=== PATIENT | female | born 1960 | race Caucasian/White ===

== ENCOUNTER 2019-10-17 16:39 | Emergency (ER) | payer OTHER, SELFPAY ==
--- NOTE | 2019-10-17 16:51 | ED.GENADULT ---
HPI - General Adult General Chief complaint: Upper Respiratory Infection Stated complaint: Sore Throat,Body Aches Time Seen by Provider: 10/17/19 17:01 Source: patient Mode of arrival: ambulatory Limitations: no limitations History of Present Illness HPI narrative: 58-year-old female patient presents to the the medical center with complaints of cold symptoms that started abruptly last night. Patient denies getting a flu shot this year. Patient states she thinks she has been running fevers but has had overall body aches pains. Patient states she has had a sore throat and some right ear pain. Denies any chest pain or shortness of breath. Patient denies seeing anything for her symptoms states she is just been trying to stay hydrated and sleeping. Related Data Home Medications Medication Instructions Recorded Confirmed Protonix 10/17/19 levothyroxine 112 mcg PO DAILY 10/17/19 10/17/19 paroxetine HCl [Paxil] 30 mg PO QAM 10/17/19 10/17/19 Allergies Allergy/AdvReac Type Severity Reaction Status Date / Time No Known Allergies Allergy Unverified 10/17/19 17:02 Review of Systems Review of Systems: Narrative: CONSTITUTIONAL: Positive subjective fever, chills, body aches and sweats. EYES: Denies visual changes, redness, or discharge. ENT: Denies rhinorrhea, congestion, positive sore throat, denies otalgia. CARDIOVASCULAR: Denies chest pain, palpitations, or edema. RESPIRATORY: Denies cough or dyspnea. GASTROINTESTINAL: Denies abdominal pain, nausea, vomiting, or diarrhea. GENITOURINARY: Denies dysuria or hematuria. SKIN: Denies rash or itching. MUSCULOSKELETAL: Denies back pain, joint pain, or myalgia. NEUROLOGIC: Positive headache, denies numbness, or weakness. PSYCHIATRIC: Denies anxiety or depression. PMFSH Social History Social History Gender identity (if verbalized by the patient): Female Comments At the time of my signature I agree with nursing past medical history, surgical, social, and family history. There is no relevant family history pertinent to the presenting complaint. Exam Narrative: Exam Narrative: GENERAL: Well-appearing, well-nourished, and in no acute distress. HEAD: Normocephalic, atraumatic. No tenderness noted to frontal or maxillary sinuses on palpation EYES: PERRLA and EOMI. ENT: Nares clear, no rhinorrhea or epistaxis. Mucous membranes moist. Posterior pharynx with 2+ tonsil swelling slight erythema no exudates or lesions present. Bilateral TMs are clear no erythema or foreign bodies in the canal. NECK: Supple. No lymphadenopathy CHEST: Clear to auscultation. No respiratory distress. HEART: Regular rate and rhythm. No murmur heard. Normal peripheral pulses. ABDOMEN: Soft, nontender, nondistended, normal active bowel sounds. EXTREMITIES: Normal range of motion. No edema. SKIN: Warm, dry, no rash. NEURO: No focal deficits. Alert and oriented x3. Course Reevaluation(s) Reevaluation #1: Notify patient that her influenza test today is negative however her strep is positive. Discussed with her we will discharge her home with oral antibiotics for the strep infection. Discussed with patient she can take Tylenol and ibuprofen as needed for pains, fevers and body aches. Discussed with patient I did go ahead and write her off work for tomorrow however she has worsening symptoms she will need to go to the ER otherwise follow-up with her primary doctor next 5 to 7 days as needed. Patient verbalized understanding denies any other questions or concerns. Date: 10/17/19 Time: 17:11 Vital Signs Vital signs: Vital Signs Temperature 36.8 C 10/17/19 17:02 Pulse Rate 97 10/17/19 17:02 Respiratory Rate 18 10/17/19 17:02 Blood Pressure 133/78 10/17/19 17:02 Pulse Oximetry 98 10/17/19 17:02 Temperature 36.8 C 10/17/19 17:02 Pulse Rate 97 10/17/19 17:02 Respiratory Rate 18 10/17/19 17:02 Blood Pressure 133/78 10/17/19 17:02 Pulse
[2019-10-17 17:02] VITALS: BP 133/78; PULSE 97; RESP 18; TEMP 36.8; O2SAT 98
== END 2019-10-17 17:15 | disposition home or self-care (01) ==
PROVIDERS: Emergency Provider Nurse Practitioner Family; PCP Family Medicine Adolescent Medicine
DX: J02.0 Streptococcal pharyngitis (principal)
CPT/HCPCS: 87804; 87880; 99213; G0463

== ENCOUNTER → 2021-07-03 05:28 | Outpatient (CLI) | payer OTHER, SELFPAY ==
[2021-07-03 16:43] LABS: SARS-CoV-2 RNA PCR Negative
== END ==
PROVIDERS: PCP Family Medicine Adolescent Medicine; Visit Provider Family Medicine Adolescent Medicine
DX: R50.9 Fever, unspecified (principal); R05.9 Cough, unspecified; Z20.822 Contact with and (suspected) exposure to COVID-19
CPT/HCPCS: C9803; U0003; U0005

== ENCOUNTER → 2025-02-20 15:49 | Outpatient (CLI) | payer OTHER, SELFPAY ==
--- NOTE | ~2025-02-20 | XR_ITS ---
Clinical Indication: Chronic cough PA and lateral views of the chest: Comparison: None Findings: The lungs are clear, without evidence of focal consolidation or pleural effusion. Cardiome diastinal silhouette is within normal limits. Bones and soft tissues are unremarkable. Impression: Normal chest. Reviewed, dictated and finalized at location . Impression: Normal chest.
== END ==
LOC: EXPCRAD 15:53
PROVIDERS: PCP Nurse Practitioner Family; Visit Provider Nurse Practitioner Family
DX: R05.3 Chronic cough (principal)
CPT/HCPCS: 71046

== ENCOUNTER 2025-04-29 19:54 | Emergency (ER) | payer OTHER, SELFPAY ==
--- NOTE | ~2025-04-29 | XR_ITS ---
EXAMINATION: XR chest 2V 04/29/2025 20:37 INDICATION: Chest pain PROCEDURE: 2 view chest COMPARISON: 02/20/2025 FINDINGS: The lungs are clear. The cardiomediastinal silhouette is within normal limits. There are no pleural effusions. There is no pneumothorax suspected. IMPRESSION: 1: NO ACUTE CARDIOPULMONARY DISEASE. Reviewed, dictated and finalized at location A.
--- NOTE | 2025-04-29 19:54 | ECG_ITS ---
Test Date: 2025-04-29 20:01:49 Measurements Intervals Robards Rate: 75 P: 33 VA: 162 QRS: -14 QRSD: 89 T: 24 QT: 368 QTc: 412 Interpretive Statements SINUS RHYTHM POSSIBLE LEFT ATRIAL ENLARGEMENT LOW QRS VOLTAGE IN PRECORDIAL LEADS POSSIBLE ANTERIOR MYOCARDIAL INFARCTION , PROBABLY OLD ABNORMAL ECG No previous ECG available for comparison Electronically Signed On 04-30-2025 06:15:36 CDT by Josh Juarez D.O.
[2025-04-29 19:55] VITALS: BP 152/88; PULSE 77; RESP 17; TEMP 36.1; O2SAT 99
--- OUTSIDE RECORDS SUMMARY | 2025-04-29 19:56 | XMS_ITS | Encounter Summary ---
Author Organization [facility] Health Address [address] [place] [address] Care Team Providers Care Printed Circuit Board Layout Designer Name Role Phone Lonnie Redman MD Primary Care Provider + Reason for Visit * Reason Onset Date Comments MEDICATION REFILL 02/06/2021 Encounter Details Date Type Department Care Team (Late st Contact Info) Description 02/06/2021 Refill [facility] [address] [facility] [address] [place] [address] Vee Clarke MD [address] [facility] [address] [place] [id number] MEDICATION REFILL Social History Tobacco Use Types Packs/Day Years Used Date Smoking Tobacco: Former Smokeless Tobacco: Never Comments:Quit 19 years ago Alcohol Use Standard Drinks/Week Comments Yes 0 (1 standard drink = 0.6 oz pur e alcohol) rare Comments No Sex and Gender Information Value Date Recorded Sex Assigned at Female 02/23/2021 7:50 AM CDT Legal Sex Female 5:29 AM INFORMATION CONSULTANT Gender Identity Female 02/23/2021 7:50 AM CDT Sexual Orientation Straight 04/06/2021 5: 29 PM CDT COVID-19 Exposure Response Date Recorded In the last month, have you been in contact with someone who was confirmed or suspected to have Coronavirus / COVID-19? No / Unsure 01/12/2021 2:33 PM CDT documented as of this encounter Miscellaneous Notes * Telephone Encounter - Jennifer Mccarthy RN - 02/06/2021 3:20 PM CDT Please see previous notes. Patient needs a FU visit with . Suggest she contact our office. documented in this encounter Plan of Treatment Upcoming Encounters Date Type Department Care Team (Late st Contact Info) Description 08/13/2025 8:30 AM INFORMATION CONSULTANT Office Visit [facility] - HOSPITAL UNIT COORDINATOR [address], [facility] [address] [place] [address] Vee Clarke MD [address] [facility] [address] [place] [address] documented as of this encounter Visit Diagnoses Diagnosis History of candidiasis Personal history of other infectious and parasitic disease documented in this encounter Care Teams Printed Circuit Board Layout Designer Relationship Specialty Start Date End Date Lonnie eRdman MD [address] [place] [id number] PCP - General 12/21/17 documented as of this encounter
--- OUTSIDE RECORDS SUMMARY | 2025-04-29 19:56 | XMS_ITS | Clinical Summary ---
Author Organization [facility] Address [address] [place] [address] Care Team Providers Care Livestock Farmers Name Role Phone Lonnie Redman MD Primary Care Prov ider Allergies No known active allergies Medications fluocinonide (LIDEX) 0.05 % ointment APPLY TO EXTERNAL VULVAR TISSUE TWICE DAILY. 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 Surgical History Surgery Date Site/Laterality Comments TONSILLECTOMY 09/12/1977 - 09/11/1978 PELVIC LAPAROSCOPY 09/12/1989 - 09/11/1990 endometriosis and benign ovarian cyst SECTION 09/12/1990 - 09/11/1991 GASTRIC BYPASS 09/12/1996 - 09/11/1997 CHOLECYSTECTOMY 09/12/1997 - 09/11/1998 INCISIONAL HERNIA REPAIR 09/12/1997 - 09/11/1998 ENDOMETRIAL BIOPSY 09/12/2017 - 09/11/2018 benign EXCISION / BIOPSY BREAST / NIPPLE / DUCT 09/12/2000 - 09/11/2001 Right benign Medical History Medical History Date Comments Hypothyroidism Depression Family History Medical History Relation Name Comments Ovarian cancer Cousin 1 Vicky Salena's daught er [place] sarcoma Cousin 2 paternal Massiel's son Testicular cancer Cousin 3 paternal Paolo's s on Esophageal cancer Cousin 4 maternal s/p lung t ransplant Colon cancer Father's Brother Jarrod Ovarian cancer Father's Sister February v uterine, COD Breast cancer Maternal Grandmother Breast cancer Mother COD Breast cancer Sister Arlin ER+, 3 primari es, germline testing reportedly neg Relation Name Status Comments Cousin 1 Vicky Cousin 2 paternal Alive Cousin 3 paternal Alive Cousin 4 maternal Father Father's Brother Jarrod Father's Sister February Maternal Grandfather Maternal Grandmother Mother Paternal Grandfather Paternal Grandmother Sister Arlin Alive Social History Tobacco Use Types Packs/Day Years Used Date Smoking Tobacco: Former Personal Safety Answer Date Recorded Getting School Help Needed Not on file 11/25 Comments No Sex and Gender Information Value Date Recorded Sex Assigned at Not on file Legal Sex Female 11:42 PM 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 Gender Identity Female 04/13/2021 2:57 PM CDT Sexual Orientation Straight 04/13/2021 2: 57 PM CDT Obstetrics History Para Term AB IAB SAB Ectopic Multiple Livin g Live Births 2 2 2 Date Outcome GA Total Labor Labor/2nd/3rd Weight Sex Type Anes PTL Cheryle A1 A5 Name Clin Term Term Plan of Treatment Not on file [facility] HMO [facility] HMO Care Teams Livestock Farmers Relationship Specialty Start Date End Date Lonnie Redman MD [address] [place] [address] PCP - General Family Medicine 06/20/18
--- OUTSIDE RECORDS SUMMARY | 2025-04-29 19:56 | XMS_ITS | Clinical Summary ---
Author Organization [facility] Address [address] [place] [address] Care Team Providers Care Spin Tank Tender Name Role Phone Lonnie Redman MD Primary Care Provider + Source Comments [facility],non-owned Affiliates and Associated Physician Practices is amultiple site organization consisting of ambulatory clinics and hospital sitesin [place], [place], [place] and [place]. This disclosure is being madepursuant to the Care Everywhere program and may not contain all information available regarding this patient. Last updated 18.[facility] Allergies No known active allergies Medications * Be aware that medications may not be up to date on this document. Alwaysverify current medications with the patient. PARoxetine (PAXIL) 30 MG tablet Take 1 (one) tablet by mouth once daily 2 8 Active Multiple Vitamins-Mineral s (MULTIVITAMIN ADULT PO) Take 1 tablet by mouth once daily Active levothyroxine (SYNTHROID) 112 MCG tablet Take 1 (one) tablet by mouth once daily 3 8 Active pantoprazole EC (PROTONIX) 40 MG tablet Take 1 (one) tablet by mouth once daily 0 Active nystatin (Mycostatin) 156082 UNIT/GM ointmentIndicati ons:Yeast infection involving the vagina and surrounding area Apply to external vulvar tissues twice daily. 30 g 1 4 Active tacrolimus (Protopic) 0.1 % ointmentIndicati ons:Lichen sclerosus et atrophicus of the vulva APPLY TO THE AFFECTED AREA TWICE A DAY 60 g 1 5 Active albuterol HFA (Proventil; Ventolin; Proair) 108 (90 Base) MCG/ACT inhaler Inhale 2 (two) puffs by mouth every 4 hours as needed for Wheezing 5 Active levothyroxine (Synthroid) 125 MCG tablet Take 1 (one) tablet by mouth once daily 5 Active fluconazole (Diflucan) 200 MG tabletIndication s:Yeast infection involving the vagina and surrounding area TAKE 1 TABLET BY MOUTH EVERY OTHER DAY FOR THREE DOSES 3 tablet 5 Active Active Problems Problem Noted Date Diagnosed Date 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 Hypothyroidism 05/13/2007 Resolved Problems Problem Noted Date Diagnosed Date Resolved Date Lichen sclerosus 12/21/2017 05/20/2022 Screening for condition 05/24/200907/13 Overview (06/12/2015): Mammogram 05-24-2008 Negative Category 1 Encounters Date Type Department Care Team Description 02/05/2025 8:30 AM CDT Office Visit [facility] - SPEECH ASSISTANT [address], [facility] [address] [place] [address] Vee Clarke MD Lichen sclerosus et atrophicus of the vulva (Primary Dx); history of candidiasis 02/05/2025 Travel from Last 3 Months Immunizations Immunization Administration Dates Next Due Zoster Hzv Vacc Recombinant Inj Im 11/03/2019 Family History Relation Name Status Comments Mother (Age 59) Breast Can cer dx age 56 Social History Tobacco Use Types Packs/Day Years Used Date Smoking Tobacco: Former Passive Smoke Exposure: Never Smokeless Tobacco: Never Tobacco Cessation:Counseling Given: Not Answered Comments:Quit 19 years ago Alcohol Use Standard Drinks/Week Comments Yes 0 (1 standard drink = 0.6 oz pur e alcohol) rare PHQ-2 Answer Date Recorded Patient Health Questionnaire-2 Score 0 02/05/2025 Comments No Sex and Gender Information Value Date Recorded Sex Assigned at Female 02/23/2021 7:50 AM CDT Legal Sex Female 5:29 AM TIN POURER Gender Identity Female 02/23/2021 7:50 AM CDT Sexual Orientation Straight 04/06/2021 5: 29 PM CDT Last Filed Vital Signs Vital Sign Reading Time Taken Comments Blood Pressure 148/88 02/05/2025 8:31 AM CDT Pulse - - Temperature 36 C (96.8 F) 07/31/2024 2:04 PM TIN POURER Respiratory Rate - - Oxygen Saturation - - Inhaled Oxygen Concentration - - Weight 92.4 kg (203 lb 9.6 oz) 02/05/2025 8:31 A M CDT Height 154.9 cm (5' 1) 02/05/2025 8:31 AM CDT Body Mass Index 38.47 02/05/2025 8:31 AM CDT Plan of Treatment Upcoming Encounters Date Type Department Care Team (Late st Contact Info) Description 08/13/2025 8:30 AM TIN POURER Office Visit [facility] - SPEECH ASSISTANT [address], [facility] [address] [place] [address] Vee Clarke MD [address] [place] [address] Health Maintenance Due Date Last Done Comments COLOGUARD (AGES 45-75) - COLON CA SCREENING 1960 COLON MONITORING 1960 COLONOSCOPY - COLON CA SCREENING 1960 CT COLONOGRAPHY - COLON CA SCREENING 1960 Colorectal Cancer Screening 1960 FIT - COLON CA SCREENING 1960 FLEX SIG - COLON CA SCREENING 1960 LIPID TESTING 1960 HIV SCREENING 1975 HEPATITIS C SCREENING 11/02/1978 DTAP/TDAP/TD VACCINES (1 - Tdap) 1979 PNEUMOCOCCAL VACCINE 50+ (1 of 1 - PCV) 2010 ZOSTER VACCINE (2 of 2) 12/29/2019 11/03/2019 COVID-19 VACCINE (3 - 2023- season) 2024 01/04/2021, 12/07/2020 SCREENING FOR DIABETES 07/31/2024 INFLUENZA VACCINE (#1) 2025 11/03/2019 PAP SMEAR 03/22/2026 03/22/2023, 03/22/2023 MAMMOGRAM 03/30/2026 03/30/2024, 03/12, 12/29/2021 (Done Outside Per Report), Additional history exists Respiratory Syncytial Virus (RSV) Vaccine Pt: or over 60 yrs (1 - 1-dose 75+ series) 2035 DEPRESSION SCREENING Completed 02/05/2025, 03/01/20 23 HEPATITIS B VACCINE Aged Out No longe r eligible based on patient's age to complete this topic HIB VACCINE Aged Out No longer eligi ble based on patient's age to complete this topic HPV VACCINE Aged Out No longer eligi ble based on patient's age to complete this topic MENINGOCOCCAL (Group B) VACCINE SHARED DECISION-MAKING Aged Out No longer eligible based on patient's age to complete this topic MENINGOCOCCAL GROUPS A/C/Y/W VACCINE Aged Out No longer eligible based on patient's age to complete this topic Procedures Procedure Name Priority Date/Time Associated Diagnosis Comments MAMMOGRAM Routine 08/21/2019 from Last 3 Months or Most Recently Relevant to Health Maintenance Results * MAMMOGRAM (08/21/2019) Anatomical Region Laterality Modality Other Historical Provider MD SCANNING ONLY Final Res ult from Last 3 Months or Most Recently Relevant to Health Maintenance Insurance [facility] Care Teams Spin Tank Tender Relationship Specialty Start Date End Date Lonnie Redman MD [address] [address] PCP - General 12/21/17
--- OUTSIDE RECORDS SUMMARY | 2025-04-29 19:56 | XMS_ITS | Clinical Summary ---
Author Organization [facility] Address [address] [place] [address] Care Team Providers Care Taker Away Name Role Phone Unavailable Primary Care Provider Unavailabl e Encounters Date Type Department Care Team Description 04/16/2025 External Device Data STL ABSTRACTION Provider, Abstract 04/16/2025 External Device Data STL ABSTRACTION Provider, Abstract 04/03/2025 10:00 AM CDT - 04/03/2025 11:59 PM CDT Hospital Encounter [facility] [address] [place] [address] Lonnie Redman MD Discharge Disposition: Home or Self Care 03/27/2025 External Device Data STL ABSTRACTION Provider, Abstract 03/26/2025 External Device Data STL ABSTRACTION Provider, Abstract 03/20/2025 Transcribe Orders Central Test Scheduling [address] [place] [phone] Lonnie Redman MD Encounter for mammogram to establish baseline mammogram (Primary Dx) 03/05/2025 External Device Data STL ABSTRACTION Provider, Abstract 01/31/2025 External Device Data STL ABSTRACTION Provider, Abstract 01/30/2025 External Device Data STL ABSTRACTION Provider, Abstract 01/30/2025 External Device Data STL ABSTRACTION Provider, Abstract 01/29/2025 External Device Data STL ABSTRACTION Provider, Abstract from Last 3 Months Social History Tobacco Use Types Packs/Day Years Used Date Smoking Tobacco: Never Assessed Comments Unknown Sex and Gender Information Value Date Recorded Sex Assigned at Female 04/01/2025 12:48 PM CDT Legal Sex Female 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 Gender Identity Female 04/01/2025 12:48 PM CDT Sexual Orientation Straight 04/01/2025 12 :48 PM CDT Plan of Treatment Health Maintenance Due Date Last Done Comments Pre-Diabetes and Diabetes Screening 1960 DTAP/TDAP/TD VACCINES (1 - Tdap) 1979 HPV/Cotest (21-29) 1981 HPV/Cotest (30-65) 1990 COLORECTAL SCREENING 2005 Colorectal Cancer Screening 2005 FIT-DNA Q 3 years 2005 FIT/FOBT Q 1 year 2005 Flex Sig/CT Colonography Q 5 years 2005 ZOSTER VACCINE (2 of 2) 12/29/2019 11/03/2019 INFLUENZA VACCINE (#1) 2025 BREAST CANCER SCREENING 04/03/2026 04/03/20, 03/30/2024, 12/25/2021, Additional history exists CERVICAL CANCER SCREENING 03/20/2028 PAP SMEAR 03/20/2028 03/20/2025, 03/22/2023 RSV VACCINE (60+ or ) (1 - 1-dose 75+ series) 2035 Procedures Procedure Name Priority Date/Time Associated Diagnosis Comments MAMMO 3D MELANIE SCREEN BILAT W OR WO CAD Routine 04/03/2025 10:19 AM CDT Encounter for mammogram to establish baseline mammogram from Last 3 Months Results * MAMMO 3D MELANIE SCREEN BILAT W OR WO CAD (04/03/2025 10:19 AM CDT) Anatomical Region Laterality Modality Breast Bilateral Mammography 04/03/2025 10:2 0 AM CDT Impressions 04/03/2025 4:59 PM CDT IMPRESSION: NO RADIOGRAPHIC EVIDENCE OF MALIGNANCY. BI-RADS CATEGORY 1-Negative. DICTATION LOCATION: Location 4 Narrative 04/03/2025 4:59 PM CDT MAMMOGRAM Computer Assisted Detection (CAD) used during interpretation. INDICATION: Screening. Standard views of both breasts are obtained. 3D tomosynthesis was also utilized. Compared to 03/30/24. There has been no change. There is no abnormal mass or grouped microcalcifications present to suggest malignant disease. Breast Density: Scattered areas of fibroglandular density. us Lonnie Юлия MD MAMMO ORDERABLES Final Res ult from Last 3 Months Insurance ([employer] Address: [facility] [id number] [place] [address]
[2025-04-29 20:08] LABS: Hematocrit 39.5 % (37.0-47.0); Hemoglobin 13.2 g/dL (12.0-15.0); Immature Granulocyte Percent A 0.3 % (0-0.5); Lymphocytes Absolute Auto 2.27 K/mm3 (0.9-3.2); Mean Corpuscular HGB Conc 33.4 g/dl (32-36); Mean Corpuscular Hemoglobin 29.3 pg (26-34); Mean Corpuscular Volume 87.6 fl (80-100); Nucleated Red Blood Cells Absolute Auto 0.000 K/mm3 (0.0-0.012); Nucleated Red Blood Cells Perc 0.0 % (0.0-0.2); Platelet Count Result 245 k/mm3 (150-375); Red Blood Count 4.51 M/mm3 (4.2-5.4); White Blood Count 6.4 K/mm3 (4.5-10.0)
[2025-04-29 20:22] LABS: Alanine Aminotransferase 19 U/L (6-35); Albumin Level 4.2 g/dL (3.5-5.1); Alkaline Phosphatase 75 U/L (38-126); Anion Gap 5 mmol/L (4-12); Aspartate Amino Transferase 31 U/L (14-36); Bilirubin,Total 0.4 mg/dL (0.2-1.3); Blood Urea Nitrogen 19 mg/dL (7-17); Calcium 9.0 mg/dL (8.4-10.2); Carbon Dioxide 26 mmol/L (22-30); Chloride 105 mmol/L (98-107); Estimated CRCL calculation 86 ml/min; Estimated Glomerular Filt Rate > 60; Glucose 101 mg/dL (65-110); Lipase 111 U/L (23-300); Potassium 4.3 mmol/L (3.4-5.0); Sodium 136 mmol/L (137-145); Total Protein 7.0 g/dL (6.3-8.2)
[2025-04-29 20:27] LABS: INR 1.0; Prothrombin Time 12.8 Seconds (11.1-14.7)
[2025-04-29 20:28] LABS: Partial Thromboplastin Time 24.9 Seconds (22.3-36.8)
[2025-04-29 20:34] LABS: Troponin I < 0.012 ng/mL (0.000-0.034)
[2025-04-30] VITALS: PULSE 80; RESP 16; O2SAT 99
--- NOTE | 2025-04-30 00:48 | ED.GENADULT ---
HPI - General Adult General Chief complaint: Chest Pain Stated complaint: chest pain Time Seen by Provider: 04/30/25 00:28 History of Present Illness HPI narrative: 64-year-old female present to the emergency department for evaluation for epigastric and substernal chest pain. Patient states the pain lasted approximately 30 minutes did radiate up her chest into her jaw. Patient denies any strenuous activity with this. Patient denies any prior history of coronary disease. Patient states she does have history of gastritis and has been taking increased dose of her pantoprazole. Patient does have a scheduled endoscopy and colonoscopy for early May. Family desires any personal history of coronary disease but does have a family history of heart disease. Related Data Home Medications ?Medication ?Instructions ?Recorded ?Confirmed ?Last Taken ?Type tacrolimus 0.1 % topical ointment 1 applic topical BID 08/17/23 04/24/25 Unknown History ferrous fumarate 89 mg (29 mg 89 mg PO DAILY 09/04/24 04/24/25 Unknown History iron) tablet multivitamin 1 tablet PO DAILY 09/04/24 04/24/25 Unknown History estradiol 0.01% (0.1 mg/gram) 0.25 appful vaginal 2XW 04/24/25 04/24/25 Unknown History vaginal cream (Estrace) Allergies Allergy/AdvReac Type Severity Reaction Status Date / Time No Known Allergies Allergy Verified 04/29/25 19:56 Review of Systems Review of Systems: All systems reviewed & are unremarkable except as noted in HPI and below PMFSH Past Medical History Medical History Normal colonoscopy 05/27 Repeat 06/06 Surgical History Surgical History History of incisional hernia repair 1998 History of cholecystectomy 1997 History of gastric bypass 1996 Family History Family History Father Hypertension Heart disease CAD, CABG Parkinson's disease Dementia Mother Diabetes mellitus Breast cancer Sibling Diabetes mellitus x2 Acute myocardial infarction Sister 1, [place] x2 : age 56 Sister 2, [place]: age 58 Sibling Breast cancer Double Mastectomy. 2019 Social History Social History Smoking status: Former smoker Alcohol intake: never Substance use: never Substance use type: does not use Do You Feel Safe in your Home?: Yes Lack of Transportation: No Lack of Food: Never True Current Housing: I Have Housing Concerned About Future Housing: No Difficulty Paying Gas/Electric Bills: No Difficulty Paying for Meds: No Currently Unemployed: No Education: Trade/Vocational Certificate Difficulty w/ Childcare or Family Care: No Living arrangements: with family Occupation/Education: occupation Gender identity (if verbalized by the patient): Female Spiritual care concerns: No Exam Narrative: APPEARANCE: Well appearing, no pain, no distress, well-nourished. HEAD: normocephalic, atraumatic. EYES: PERRLA/EOMI, conjunctivae clear. NOSE: Normal no drainage EARS:TMS clear with good light reflex. THROAT: Pharynx clear, no exudate. NECK: Supple. No adenopathy, no masses. RESPIRATORY: Airway patent, respirations nonlabored. Clear to auscultation bilaterally, no rales, rhonchi, wheezing. CARDIOVASCULAR: Regular rate and rhythm without murmurs rubs or gallops. ABDOMINAL: Soft, nontender, nondistended, normal bowel sounds MUSCULOSKELETAL: Moves all extremities. Strength/ROM intact, No edema, No calf tenderness. NEURO: Alert. Cranial nerves II through XII intact. Good gait. Good coordination SKIN: Warm, dry. Normal Color Course Vital Signs Vital signs: Vital Signs Temperature 97.0 F L 04/29/25 19:55 Pulse Rate 77 04/29/25 19:55 Respiratory Rate 17 04/29/25 19:55 Blood Pressure 152/88 H 04/29/25 19:55 Pulse Oximetry 99 04/29/25 19:55 Oxygen Delivery Room Air 04/29/25 19:55 Temperature 97.0 F L 04/29/25 19:55 Pulse Rate 84 04/30/25 01:26 Respiratory Rate 18 04/30/25 01:26 Blood Pressure 138/67 04/30/25 01:26 Pulse Oximetry 99 04/30/25 01:26 Oxygen Delivery Room Air 04/30/25 00:00 Medical Decision Making [facility] Narrative Medical decision making narrative: 64-year-old female present to the emergency department for evaluation for epigastric and chest pain. Patient is currently pain-free and states her pain lasted approximately 3 minutes then resolved. Patient is currently afebrile with no leukocytosis hemoglobin 13.2. Patient has an INR of 1.0. No acute abnormalities on her CMP and patient had negative serial troponins. Chest x-ray showed no acute cardiopulmonary abnormality. EKG was normal sinus rhythm with no evidence of acute infarction. Differential Diagnosis Differential Diagnosis: Pneumonia, pneumothorax, esophageal spasm, ACS, pulmonary embolism Vital Signs Vital Signs: Vital Signs Temperature 97.0 F L 04/29/25 19:55 Pulse Rate 77 04/29/25 19:55 Respiratory Rate 17 04/29/25 19:55 Blood Pressure 152/88 H 04/29/25 19:55 Pulse Oximetry 99 04/29/25 19:55 Oxygen Delivery Room Air 04/29/25 19:55 Temperature 97.0 F L 04/29/25 19:55 Pulse Rate 84 04/30/25 01:26 Respiratory Rate 18 04/30/25 01:26 Blood Pressure 138/67 04/30/25 01:26 Pulse Oximetry 99 04/30/25 01:26 Oxygen Delivery Room Air 04/30/25 00:00 Lab Data Lab results reviewed: Yes I reviewed the patient's lab results. 04/29/25 20:03 04/29/25 20:03 Labs: Lab Results 04/29/25 04/30/25 Range/Units 20:03 00:05 WBC 6.4 (4.5-10.0) K/mm3 RBC 4.51 (4.2-5.4) M/mm3 Hgb 13.2 (12.0-15.0) g/dL Hct 39.5 (37.0-47.0) % MCV 87.6 (80-100) fl MCH 29.3 (26-34) pg MCHC 33.4 (32-36) g/dl RDW 12.2 (11.5-14.5) % Plt Count 245 (150-375) k/mm3 MPV 9.2 (7.4-10.4) fl Immature Gran % (Auto) 0.3 (0-0.5) % Neut % (Auto) 53.5 (45.5-73.1) % Lymph % (Auto) 35.3 (18.3-44.2) % Stark % (Auto) 8.4 (2.6-8.5) % Eos % (Auto) 2.0 (0-4.4) % Baso % (Auto) 0.5 (0.2-1.2) % Lymph # (Auto) 2.27 (0.9-3.2) K/mm3 Stark # (Auto) 0.5 (0.1-0.6) K/mm3 Eos # (Auto) 0.1 (0-0.3) K/mm3 Baso # (Auto) 0.0 (0.0-0.1) K/mm3 Abs Immat Gran (auto) 0.02 (0.00-0.031) K/mm3 Absolute Neuts (auto) 3.4 (1.3-6.7) K/mm3 Absolute Nucleated RBC 0.000 (0.0-0.012) K/mm3 Nucleated RBC % 0.0 (0.0-0.2) % PT 12.8 (11.1-14.7) Seconds INR 1.0 APTT 24.9 (22.3-36.8) Seconds Sodium 136 L (137-145) mmol/L Potassium 4.3 (3.4-5.0) mmol/L Chloride 105 (98-107) mmol/L Carbon Dioxide 26 (22-30) mmol/L Anion Gap 5 (4-12) mmol/L BUN 19 H (7-17) mg/dL Creatinine 0.58 L (0.7-1.0) mg/dL Estim Creat Clear Calc 86 ml/min Estimated GFR > 60 (59 - ) Glucose 101 (65-110) mg/dL Calcium 9.0 (8.4-10.2) mg/dL Total Bilirubin 0.4 (0.2-1.3) mg/dL AST 31 (14-36) U/L ALT 19 (6-35) U/L Alkaline Phosphatase 75 (38-126) U/L Troponin I < 0.012 < 0.012 (0.000-0.034) ng/mL Total Protein 7.0 (6.3-8.2) g/dL Albumin 4.2 (3.5-5.1) g/dL Lipase 111 (23-300) U/L Imaging Data Radiologist's impression: Impressions Chest X-Ray 04/29/25 20:39 IMPRESSION: 1: NO ACUTE CARDIOPULMONARY DISEASE. ECG Data EKG #1: EKG Interpretation: normal rate, sinus rhythm, no ectopy, non-specific ST changes, normal QRS, normal QT and NL axis Discharge Plan Discharge Clinical Impression: Chest pain Patient Disposition: Home Condition: Stable Instructions: Antibiotic Form, Chest Pain (ED) Additional Instructions: Have close follow-up with your primary care physician for additional outpatient cardiac testing. Have close follow-up with GI to have your endoscopy and colonoscopy as scheduled. If you have any worsening symptoms and please call or return to the emergency department. Patient Language: Belarusian Prescriptions: No Action tacrolimus 0.1 % ointment 1 applic topical BID multivitamin Tablet 1 tablet PO DAILY ferrous fumarate 89 mg (29 mg iron) tablet 89 mg PO DAILY Patient Comments: not taking estradiol [Estrace] 0.01 % (0.1 mg/gram) cream 0.25 appful vaginal 2XW levothyroxine 125 mcg tablet See Rx Instructions .ROUTE .COMPLEX Qty: 30 10RF Dose Instruction: Take 1 tablet by mouth once daily Rx Instructions: Take 1 tablet by mouth once daily paroxetine HCl 30 mg tablet See Rx Instructions .ROUTE .COMPLEX Qty: 90 3RF Dose Instruction: TAKE 1 TABLET EVERY MORNING Rx Instructions: TAKE 1 TABLET EVERY MORNING pantoprazole 40 mg tablet,delayed release (DR/EC) See Rx Instructions .ROUTE .COMPLEX Qty: 90 3RF Dose Instruction: TAKE 1 TABLET EVERY MORNING Rx Instructions: TAKE 1 TABLET EVERY MORNING Follow-up/Referrals: Sabiha Day APRN [Primary Care Provider, Family Practice] Quality HEART score for chest pain patients History: slightly suspicious ECG: normal Age: > 45 and < 65 years Risk factors: 1 or 2 risk factors Troponin: < or = to 1x normal limit Heart score: 2
[2025-04-30 01:09] LABS: Troponin I < 0.012 ng/mL (0.000-0.034)
--- OUTSIDE RECORDS SUMMARY | 2025-04-30 01:14 | XMS_ITS | Clinical Summary ---
Author Organization [facility] Address [address] [place] [address] Care Team Providers Care Optical Instrument Assembler Name Role Phone Unavailable Primary Care Provider Unavailabl e Encounters Date Type Department Care Team Description 04/16/2025 External Device Data STL ABSTRACTION Provider, Abstract 04/16/2025 External Device Data STL ABSTRACTION Provider, Abstract 04/03/2025 10:00 AM CDT - 04/03/2025 11:59 PM CDT Hospital Encounter 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
--- OUTSIDE RECORDS SUMMARY | 2025-04-30 01:14 | XMS_ITS | Clinical Summary ---
Author Organization [facility] Address [address] [place] [address] Care Team Providers Care Automotive Sales Associate Name Role Phone Lonnie Redman MD Primary [...] on file Legal Sex Female 11:42 PM ASSOCIATE PROGRAM MANAGER Gender Identity Female 04/13/2021 2:57 PM CDT Sexual Orientation Straight 04/13/2021 2: 57 PM CDT Obstetrics History Para Term AB IAB SAB Ectopic Multiple Livin g Live Births 2 2 2 Date Outcome GA Total Labor Labor/2nd/3rd Weight Sex Type Anes PTL Cheryle A1 A5 Name Clin Term Term Plan of Treatment Not on file Insurance [facility] Care Teams Automotive Sales Associate Relationship Specialty Start Date End Date Lonnie Redman MD [address] [place] [address] PCP - General Family Medicine 06/20/18
--- OUTSIDE RECORDS SUMMARY | 2025-04-30 01:14 | XMS_ITS | Clinical Summary ---
Author Organization [facility] [employer] Address [address] [place] [address] Care Team Providers Care Web Worker Name Role Phone Lonnie Redman MD Primary Care Provider + Source Comments [facility] [employer],non-owned Affiliates and Associated Physician Practices is amultiple site organization consisting of ambulatory clinics and hospital sitesin [place], [place], [place] and [place]. This disclosure is being madepursuant to the Care Everywhere program and may not contain all information available regarding this patient. Last updated 18.[facility] [employer] Allergies No known active allergies Medications * [...] mouth once daily 0 Active nystatin (Mycostatin) 021613 UNIT/GM ointmentIndicati ons:Yeast infection involving the vagina [...] Description 02/05/2025 8:30 AM CDT Office Visit [facility] - RIDE OPERATOR [address], [facility] [address] [place] [address] Vee Clarke MD Lichen sclerosus [...] AM CDT Legal Sex Female 5:29 AM BUSINESS ACCOUNT MANAGER Gender Identity Female 02/23/2021 7:50 AM CDT Sexual Orientation Straight 04/06/2021 5: 29 PM CDT Last Filed Vital Signs Vital Sign Reading Time Taken Comments Blood Pressure 148/88 02/05/2025 8:31 AM CDT Pulse - - Temperature 36 C (96.8 F) 07/31/2024 2:04 PM BUSINESS ACCOUNT MANAGER Respiratory Rate - - Oxygen Saturation - - Inhaled Oxygen Concentration - - Weight 92.4 kg (203 lb 9.6 oz) 02/05/2025 8:31 A M CDT Height 154.9 cm (5' 1) 02/05/2025 8:31 AM CDT Body Mass Index 38.47 02/05/2025 8:31 AM CDT Plan of Treatment Upcoming Encounters Date Type Department Care Team (Late st Contact Info) Description 08/13/2025 8:30 AM BUSINESS ACCOUNT MANAGER Office Visit [facility] - RIDE OPERATOR [address], [facility] [address] [place] [address] Vee Clarke MD [address] [place] [address] Health Maintenance Due Date Last [...] Most Recently Relevant to Health Maintenance Insurance [facility] Care Teams Web Worker Relationship Specialty Start Date End Date Lonnie Redman MD [address] [address] PCP - General 12/21/17
--- OUTSIDE RECORDS SUMMARY | 2025-04-30 01:14 | XMS_ITS | Encounter Summary ---
Author Organization [facility] Health Address [address] [place] [address] Care Team Providers Care Band Head Saw Operator Name Role Phone Lonnie Redman MD Primary Care Provider + Reason for Visit * Reason Onset Date Comments MEDICATION REFILL 02/06/2021 Encounter Details Date Type Department Care Team (Late st Contact Info) Description 02/06/2021 Refill [facility] [address] [facility] [address] [place] [address] Vee Clarke MD [address] [facility] [address] [place] [phone] MEDICATION REFILL Social History Tobacco Use Types Packs/Day Years Used Date Smoking Tobacco: Former Smokeless Tobacco: Never Comments:Quit 19 years ago Alcohol Use Standard Drinks/Week Comments Yes 0 (1 standard drink = 0.6 oz pur e alcohol) rare Comments No Sex and Gender Information Value Date Recorded Sex Assigned at Female 02/23/2021 7:50 AM CDT Legal Sex Female 5:29 AM INDIRECT SALES EXEC Gender Identity Female 02/23/2021 7:50 AM CDT [...] st Contact Info) Description 08/13/2025 8:30 AM INDIRECT SALES EXEC Office Visit [facility] - UI SOFTWARE DEVELOPER [address], [facility] [address] [place] [address] Vee Clarke MD [address] [facility] [address] [place] [address] documented as of this encounter Visit Diagnoses Diagnosis History of candidiasis Personal history of other infectious and parasitic disease documented in this encounter Care Teams Band Head Saw Operator Relationship Specialty Start Date End Date Lonnie Redman MD [address] [place] [id number] PCP - General 12/21/17 documented as of this encounter
[2025-04-30] MEDS: ASPIRIN 81 MG CHEWABLE TABLET 324 MG PO (01:20)
[2025-04-30 01:26] VITALS: BP 138/67; PULSE 84; RESP 18; O2SAT 99
== END 2025-04-30 01:27 | disposition home or self-care (01) ==
PROVIDERS: Emergency Provider Emergency Medicine; PCP Nurse Practitioner Family
DX: R07.9 Chest pain, unspecified (principal); R94.31 Abnormal electrocardiogram [ECG] [EKG]; Z98.84 Bariatric surgery status
CPT/HCPCS: 36415; 71046; 80053; 83690; 84484; 85025; 85610; 85730; 93005; 99284; A9270

== ENCOUNTER 2025-05-14 01:42 | Day surgery (SDC) | payer OTHER, SELFPAY ==
[2025-04-24 15:20] VITALS: BMI 38.9
--- OUTSIDE RECORDS SUMMARY | 2025-05-14 01:45 | XMS_ITS | Clinical Summary ---
Author Organization [facility] Address [address] [place] [address] Care Team Providers Care Sales Representative Marine Supplies Name Role Phone Lonnie Redman MD Primary [...] on file Legal Sex Female 11:42 PM INBOUND CUSTOMER SERVICE REPRESENTATIVE Gender Identity Female 04/13/2021 2:57 PM CDT Sexual Orientation Straight 04/13/2021 2: 57 PM CDT Obstetrics History Para Term AB IAB SAB Ectopic Multiple Livin g Live Births 2 2 2 Date Outcome GA Total Labor Labor/2nd/3rd Weight Sex Type Anes PTL Cheryle A1 A5 Name Clin Term Term Plan of Treatment Not on file Insurance [facility] H[facility] H[facility] Care Teams Sales Representative [employer] Relationship Specialty Start Date End Date Lonnie Redman MD PCP - General Family Medicine 06/20/18
--- OUTSIDE RECORDS SUMMARY | 2025-05-14 01:45 | XMS_ITS | Clinical Summary ---
Author Organization [facility] [employer] [facility] Address [address] [place] [address] Care Team Providers Care Jukebox Coin Collector Name Role Phone Unavailable Primary Care Provider Unavailabl e Encounters Date Type Department Care Team Description 04/16/2025 External Device Data STL ABSTRACTION Provider, Abstract 04/16/2025 External Device Data STL ABSTRACTION Provider, Abstract 04/03/2025 10:00 AM CDT - 04/03/2025 11:59 PM CDT Hospital Encounter [facility] [address] [place] [address] Lonnie Redman MD Discharge Disposition: Home or Self Care 03/27/2025 External Device Data STL ABSTRACTION Provider, Abstract 03/26/2025 External Device Data STL ABSTRACTION Provider, Abstract 03/20/2025 Transcribe Orders Central Test Scheduling [address] [place] [phone] Lonnie Redman MD Encounter for mammogram to establish baseline mammogram (Primary Dx) 03/05/2025 External Device Data STL ABSTRACTION Provider, Abstract from Last 3 Months Social History Tobacco Use Types Packs/Day Years Used Date Smoking Tobacco: Never Assessed Comments Unknown Sex and Gender Information Value Date Recorded Sex Assigned at Female 04/01/2025 12:48 PM CDT Legal Sex Female 6:43 PM ENVELOPE ADJUSTER Gender Identity Female 04/01/2025 12:48 PM CDT [...] Breast Density: Scattered areas of fibroglandular density. Lonnie Redman MD MAMMO ORDERABLES Final Res ult from Last 3 Months Insurance
--- OUTSIDE RECORDS SUMMARY | 2025-05-14 01:45 | XMS_ITS | Encounter Summary ---
Author Organization [facility] Health Address [address] [place] [address] Care Team Providers Care Pbx Supervisor Name Role Phone Lonnie Redman MD Primary Care Provider + Reason for Visit * Reason Onset Date Comments MEDICATION REFILL 02/06/2021 Encounter Details Date Type Department Care Team (Late st Contact Info) Description 02/06/2021 Refill [facility] [address] [facility] [address] [place] [address] Vee Clarke MD [address] [facility] [address] [place] [phone] MEDICATION REFILL Social History Tobacco Use Types Packs/Day Years Used Date Smoking Tobacco: Former Smokeless Tobacco: Never Comments:Quit 19 years ago Alcohol Use Standard Drinks/Week Comments Yes 0 (1 standard drink = 0.6 oz pur e alcohol) rare Comments No Sex and Gender Information Value Date Recorded Sex Assigned at Female 02/23/2021 7:50 AM CDT Legal Sex Female 5:29 AM STORE WAREHOUSE ASSOCIATE Gender Identity Female 02/23/2021 7:50 AM CDT [...] st Contact Info) Description 08/13/2025 8:30 AM STORE WAREHOUSE ASSOCIATE Office Visit [facility] - ENTRY ENGINEER [address], [facility] [address] [place] [address] Vee Clarke MD [address] [facility] [address] [place] [address] documented as of this encounter Visit Diagnoses Diagnosis History of candidiasis Personal history of other infectious and parasitic disease documented in this encounter Care Teams Pbx Supervisor Relationship Specialty Start Date End Date Lonnie Redman MD [address] [place] [id number] PCP - General 12/21/17 documented as of this encounter
--- OUTSIDE RECORDS SUMMARY | 2025-05-14 01:45 | XMS_ITS | Clinical Summary ---
Author Organization [facility] [email or web address] Address [address] [place] [address] Care Team Providers Care Stock Trader Name Role Phone Lonnie Redman MD Primary Care Provider + Source Comments [facility] [email or web address],non-owned Affiliates and Associated Physician Practices is amultiple site organization consisting of ambulatory clinics and hospital sitesin [place], [place], [place] and [place]. This disclosure is being madepursuant to the Care Everywhere program and may not contain all information available regarding this patient. Last updated 18.[facility] [email or web address] Allergies No known active allergies Medications * [...] mouth once daily 0 Active nystatin (Mycostatin) [id number] UNIT/GM ointmentIndicati ons:Yeast infection involving the vagina [...] Overview (06/12/2015): Mammogram 05-24-2008 Negative Category 1 Immunizations Immunization Administration Dates Next Due Zoster [...] AM CDT Legal Sex Female 5:29 AM SOIL TESTER Gender Identity Female 02/23/2021 7:50 AM CDT Sexual Orientation Straight 04/06/2021 5: 29 PM CDT Last Filed Vital Signs Vital Sign Reading Time Taken Comments Blood Pressure 148/88 02/05/2025 8:31 AM CDT Pulse - - Temperature 36 C (96.8 F) 07/31/2024 2:04 PM SOIL TESTER Respiratory Rate - - Oxygen Saturation - - Inhaled Oxygen Concentration - - Weight 92.4 kg (203 lb 9.6 oz) 02/05/2025 8:31 A M CDT Height 154.9 cm (5' 1) 02/05/2025 8:31 AM CDT Body Mass Index 38.47 02/05/2025 8:31 AM CDT Plan of Treatment Upcoming Encounters Date Type Department Care Team (Late st Contact Info) Description 08/13/2025 8:30 AM SOIL TESTER Office Visit [facility] - BUSINESS SYSTEMS MANAGER [address], [place] [address] [place] [address] Vee Clarke MD [address] [place] [address] Health Maintenance Due Date Last [...] 2) 12/29/2019 11/03/2019 COVID-19 VACCINE (3 - season) 2024 01/04/2021, 12/07/2020 SCREENING FOR DIABETES [...] MAMMOGRAM (08/21/2019) Anatomical Region Laterality Modality Other us Historical Provider MD SCANNING ONLY Final Res ult from Last 3 Months or Most Recently Relevant to Health Maintenance Insurance [facility] Care Teams Stock Trader Relationship Specialty Start Date End Date Lonnie Redman MD [address] [address] PCP - General 12/21/17
[2025-05-14 08:46] VITALS: BP 137/77; PULSE 78; RESP 16; TEMP 36.4; O2SAT 98
[2025-05-14] MEDS: LACTATED RINGERS 1,000 ML 150 ML IV CONT (08:56)
--- NOTE | 2025-05-14 08:59 | P.PNAN_ITS ---
Anes - Initial Pre Proc Eval Procedure: Operation Date: 05/14/25 09:30 Proposed Procedures p EGD & Screening Colonoscopy - Maximilian Fall MD Date/Time: 05/14/25 08:59 Surgeon: Maximilian Fall MD Pre Op Diagnosis: Chronic cough, screening Patient Data Age: 64 Gender: F Height: 1.55 m Weight: 91.3 kg Last Vital Signs Temp 97.6 F 05/14/25 08:46 Pulse 78 05/14/25 08:46 Resp 16 05/14/25 08:46 BP 137/77 05/14/25 08:46 Pulse Ox 98 05/14/25 08:46 O2 Del Method Room Air 05/14/25 08:46 Allergies Allergy/AdvReac Type Severity Reaction Status Date / Time No Known Allergies Allergy Verified 05/14/25 08:44 Home Medications ?Medication ?Instructions ?Recorded ?Confirmed ?Type tacrolimus 0.1 % topical ointment 1 applic topical BID 08/17/23 05/14/25 History ferrous fumarate 89 mg (29 mg 89 mg PO DAILY 09/04/24 04/24/25 History iron) tablet multivitamin 1 tablet PO DAILY 09/04/24 0 05/14/25 History levothyroxine 125 mcg tablet See Rx Instructions .Rout e 09/30/24 05/14/25 Rx .COMPLEX #30 tabs paroxetine HCl 30 mg tablet See Rx Instructions .Route 09/30/24 05/14/25 Rx .COMPLEX #90 tabs pantoprazole 40 mg tablet,delayed See Rx Instructions .Route 11/17/24 05/14/25 Rx release .COMPLEX #90 tabs estradiol 0.01% (0.1 mg/gram) 0.25 appful vaginal 2XW 04/24/25 05/14/25 History vaginal cream (Estrace) Patient hx anesthesia problems: none Family hx anesthesia problems: none Results Review: All pre-operative results and documents have been reviewed as part of the pre- operative evaluation. [facility] Past Medical History Medical History Normal colonoscopy 05/27 Repeat 06/06 Surgical History Surgical History History of incisional hernia repair 1998 History of cholecystectomy 1997 History of gastric bypass 1996 Family History Family History Father Hypertension Heart disease CAD, CABG Parkinson's disease Dementia Mother Diabetes mellitus Breast cancer Sibling Diabetes mellitus x2 Acute myocardial infarction Sister 1, [place] x2 : age 56 Sister 2, [place]: age 58 Sibling Breast cancer Double Mastectomy. 2020 Social History Social History Smoking status: Former smoker Alcohol intake: never Substance use: never Substance use type: does not use Do You Feel Safe in your Home?: Yes Lack of Transportation: No Lack of Food: Never True Current Housing: I Have Housing Concerned About Future Housing: No Difficulty Paying Gas/Electric Bills: No Difficulty Paying for Meds: No Currently Unemployed: No Education: Trade/Vocational Certificate Difficulty w/ Childcare or Family Care: No Living arrangements: with family Occupation/Education: occupation Gender identity (if verbalized by the patient): Female Spiritual care concerns: No Anes - Eval Final PreProcedure Day of Procedure 05/14/25 08:59 Patient weight: obese Heart: regular rate and rhythm Lungs: clear to auscultation Airway: Mallampati scale class II Neurological: alert and oriented Last oral intake: >/= 8 hours ASA classification: III Emergent: no Anesthetic plan: proceed Anesthesia type and monitoring: general GIVS and standard monitoring Results Review: All pre-operative results and documents have been reviewed as part of the pre- operative evaluation. Informed Consent: The patient's anesthetic plan and its attendant risks and benefits were discussed with the patient/family/POA. Questions were solicited and answers provided to the satisfaction of the patient/family/POA.
--- NOTE | 2025-05-14 09:41 | P.HP_ITS ---
History of Present Illness History of Present Illness Consent: Risks, benefits, and alternatives have been discussed and questions answered. Patient agrees to proceed with procedure. Chief complaint: Chronic cough, screening Narrative: Bertha Enrique is a 64 year old female with chronic cough, also needs another screening colonoscopy last one 10 years ago Review of Systems Review of Systems: All systems reviewed & are unremarkable except as noted in HPI and below PMFSH Past Medical History Medical History (Updated 05/14/25 @ 09:44 by Maximilian Fall MD) Colon cancer screening Cough Normal colonoscopy 05/27 Repeat 06/06 Surgical History Surgical History History of incisional hernia repair 1998 History of cholecystectomy 1997 History of gastric bypass 1996 Family History Family History Father Hypertension Heart disease CAD, CABG Parkinson's disease Dementia Mother Diabetes mellitus Breast cancer Sibling Diabetes mellitus x2 Acute myocardial infarction Sister 1, [place] x2 : age 56 Sister 2, [place]: age 58 Sibling Breast cancer Double Mastectomy. 2020 Social History Social History Smoking status: Former smoker Alcohol intake: never Substance use: never Substance use type: does not use Do You Feel Safe in your Home?: Yes Lack of Transportation: No Lack of Food: Never True Current Housing: I Have Housing Concerned About Future Housing: No Difficulty Paying Gas/Electric Bills: No Difficulty Paying for Meds: No Currently Unemployed: No Education: Trade/Vocational Certificate Difficulty w/ Childcare or Family Care: No Living arrangements: with family Occupation/Education: occupation Gender identity (if verbalized by the patient): Female Spiritual care concerns: No Meds Home Medications and Allergies Home Medications ?Medication ?Instructions ?Recorded ?Confirmed ?Type tacrolimus 0.1 % topical ointment 1 applic topical BID 08/17/23 05/14/25 History ferrous fumarate 89 mg (29 mg 89 mg PO DAILY 09/04/24 04/24/25 History iron) tablet multivitamin 1 tablet PO DAILY 09/04/24 0 05/14/25 History levothyroxine 125 mcg tablet See Rx Instructions .Rout e 09/30/24 05/14/25 Rx .COMPLEX #30 tabs paroxetine HCl 30 mg tablet See Rx Instructions .Route 09/30/24 05/14/25 Rx .COMPLEX #90 tabs pantoprazole 40 mg tablet,delayed See Rx Instructions .Route 11/17/24 05/14/25 Rx release .COMPLEX #90 tabs estradiol 0.01% (0.1 mg/gram) 0.25 appful vaginal 2XW 04/24/25 05/14/25 History vaginal cream (Estrace) Allergies Allergy/AdvReac Type Severity Reaction Status Date / Time No Known Allergies Allergy Verified 05/14/25 08:44 Vital Signs Vital Signs - 24 hr 05/14/25 08:46 Temperature 97.6 F Pulse Rate 78 Respiratory Rate 16 Blood Pressure 137/77 Pulse Oximetry 98 Oxygen Delivery Room Air Exam Const: General: comfortable and no acute distress HENMT: Face/Nose/Sinus: Normal nares present Eyes: General: appearance normal, both eyes and all related structures Neck: Neck: no JVD Resp: Auscultation: clear to auscultation bilaterally Cardio: Rate: regular rate Rhythm: regular rhythm GI: Inspection: non-distended GI Palp: Yes Soft to palpation Skin: General skin exam: normal color Neuro: General: gait normal Speech: normal speech Extrem: General: normal to inspection Psych: Mental Status: mental status grossly normal Assessment and Plan Assessment and plan (1) Cough: Code(s): R05.9 - Cough, unspecified Status: Acute Assessment and Plan: egd (2) Colon cancer screening: Code(s): Z12.11 - Encounter for screening for malignant neoplasm of colon Status: Acute Assessment and Plan: colonoscopy
--- NOTE | 2025-05-14 10:00 | SUR.OPER ---
EGD ended at 0955, colon began at 1000.
--- NOTE | 2025-05-14 10:01 | S_PTH ---
PATIENT: Bertha Enrique LOC: [facility]#:[id number] AGE/SX: 64/F ROOM: RE05/14/[address]: Maximilian Fall MD : 1960 BED: DIS: 05/14/2025 SPEC #: [id number] RECD: 05/14/25 10:53 STATUS: BURT REQ #: [id number] IZZY: 05/14/25 10:[address]: Maximilian Fall DEPT: [facility] Surgical RECD BY: Christiano Markham ENTERED: 05/14/25 10:53 SP TYPE: Surgical OTHR DR: Sabiha Day, DISHA Tissues: A - Gastric Biopsy Procedures: Hematoxylin and Eosin Stain Gross and Microscopic Level 4
[2025-05-14 10:17] VITALS: BP 106/60; PULSE 71; RESP 16; O2SAT 98
[2025-05-14 10:27] VITALS: BP 126/83; PULSE 76; RESP 14; O2SAT 94
[2025-05-14 10:37] VITALS: BP 126/67; PULSE 69; RESP 15; O2SAT 100
== END 2025-05-14 10:55 | disposition home or self-care (01) ==
PROVIDERS: PCP Nurse Practitioner Family; Referring Provider Nurse Practitioner Family; Visit Provider Internal Medicine Gastroenterology
PROC: 0DJ08ZZ Inspection of Upper Intestinal Tract, Via Natural or Artificial Opening Endoscopic (ICD-10-PCS; CPT 45378; principal; 2025-05-14 09:30)
DX: Z12.11 Encounter for screening for malignant neoplasm of colon (principal); R05.3 Chronic cough; E66.9 Obesity, unspecified; Z68.38 Body mass index [BMI] 38.0-38.9, adult; Z98.890 Other specified postprocedural states; Z90.49 Acquired absence of other specified parts of digestive tract; Z98.84 Bariatric surgery status; Z87.891 Personal history of nicotine dependence; Z80.3 Family history of malignant neoplasm of breast; Z82.49 Family history of ischemic heart disease and other diseases of the circulatory system
CPT/HCPCS: 43239; 45378; 88305; J2003; J2704; J7120